=== PATIENT | male | born 1965 | race Caucasian/White ===

== ENCOUNTER → 2020-10-30 | Outpatient (CLI) | payer OTHER ==
[~2020-10-30] MED LIST: COUMADIN7.5 MG PO; FUROSEMIDE; HYZAAR 100-251 EACH PO; LISINOPRIL20 MG PO; LOVENOX SQ; METFORMIN; POTASSIUM20
[2020-10-30 09:20] LABS: POTASSIUM 4.1 mmol/L (3.5-5.1)
== END ==
LOC: M.LAB 05:48
PROVIDERS: ATTEND Anesthesiology
DX: E87.6 Hypokalemia (principal); E11.9 Type 2 diabetes mellitus without complications; Z20.822 Contact with and (suspected) exposure to COVID-19